=== PATIENT | male | born 1985 | race Caucasian/White ===

== ENCOUNTER 2017-04-01 17:38 | Inpatient (IN) | payer SELFPAY ==
[~2017-04-01] VITALS: Ht 170.2 cm; Wt 73.5 kg
[2017-04-01 17:40] VITALS: BP 121/71; PULSE 77; RESP 18; TEMP 97.8; O2SAT 100
[2017-04-01] MEDS ORDERED: ALUMINUM/MAGNESIUM/SIMETH 30 ML CUP PO PRN (18:45)
[2017-04-01] MEDS ORDERED: MAGNESIUM HYDROXIDE SUSP 30 ML CUP PO PRN (18:45)
[2017-04-01] MEDS ORDERED: diphenhydrAMINE HCL 50 MG CAP - HS PRN PO (18:45)
[2017-04-01] MEDS ORDERED: diphenhydrAMINE HCL 50 MG/ML VIAL - HS PRN IM (18:45)
[2017-04-01] MEDS ORDERED: ACETAMINOPHEN 325 MG TAB PO PRN (18:45)
[2017-04-01] MEDS: REMOVE OLD NICOTINE PATCH T-DERMAL SCH (20:35)
[2017-04-01] MEDS: hydrOXYzine HCL 50 MG TAB PO PRN ×2 (22:09→22:10)
[2017-04-02] MEDS ORDERED: LORazepam 2 MG/ML VIAL IV PUSH PRN ×4 (00:30)
[2017-04-02] MEDS ORDERED: LORazepam 1 MG TAB PO PRN (00:30)
[2017-04-02] MEDS ORDERED: LORazepam 2 MG TAB PO PRN (00:30)
[2017-04-02] MEDS ORDERED: FLUMAZENIL 0.5 MG/5 ML VIAL IV PUSH PRN (00:30)
[2017-04-02 05:46] VITALS: BP 103/64; PULSE 68; RESP 16; TEMP 98.1; O2SAT 99
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
[2017-04-02] MEDS: NICOTINE 21 MG/24 HR PATCH T-DERMAL SCH (09:00)
[2017-04-02] MEDS: SERTRALINE HCL 50 MG TAB PO SCH (09:30)
[2017-04-02 11:19] LABS: ANION GAP 7 MEQ/L (5-15); BICARBONATE 27.5 MEQ/L (21.0-32.0); BLOOD UREA NITROGEN 14 MG/DL (7-18); CHLORIDE 104 MEQ/L (98-107); GLOMERULAR FILTRATION RATE 81 ML/MIN (>89); POTASSIUM 4.3 MEQ/L (3.5-5.1); SODIUM (NA) 138 MEQ/L (136-145)
[2017-04-02 11:24] LABS: HDL CHOLESTEROL 48.8 MG/DL (40.0-60.0); LDL CHOLESTEROL 124 MG/DL (0-99)
[2017-04-02 16:18] LABS: HEMOGLOBIN A1a 1.4 %; HEMOGLOBIN A1b 0.9 %; HEMOGLOBIN Ao 85.9 %; HEMOGLOBIN LA1C 1.9 %; HEMOGLOBIN P3 3.3 %
[2017-04-02 18:16] VITALS: BP 133/77; PULSE 103; RESP 17; TEMP 98.3; O2SAT 99
[2017-04-02] MEDS: REMOVE OLD NICOTINE PATCH T-DERMAL SCH (21:00)
[2017-04-03 05:53] VITALS: BP 124/81; PULSE 84; RESP 16; TEMP 97.9; O2SAT 97
[2017-04-03] MEDS: SERTRALINE HCL 50 MG TAB PO SCH (08:29)
[2017-04-03] MEDS: NICOTINE 21 MG/24 HR PATCH T-DERMAL SCH (08:31)
[2017-04-03] MEDS ORDERED: HYDR50TA94 PO (10:03)
[2017-04-03] MEDS ORDERED: ZOLO50TA PO (10:03)
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
== END 2017-04-03 11:35 | disposition home or self-care (01) | DRG 880 ==
LOC: H270 17:38
PROVIDERS: ADMIT Psychiatry & Neurology Psychiatry; ATTEND Psychiatry & Neurology Psychiatry
DX: F41.3 Other mixed anxiety disorders (principal); R45.851 Suicidal ideations; F12.90 Cannabis use, unspecified, uncomplicated; F17.210 Nicotine dependence, cigarettes, uncomplicated; Z81.1 Family history of alcohol abuse and dependence
CPT/HCPCS: 80048; 80061; 83036; Q0163